=== PATIENT | male | born 1945 | race Caucasian/White ===

== ENCOUNTER 2018-04-29 17:18 | Emergency (ER) | payer MEDICARE, BC ==
[2018-04-29 19:28] VITALS: BP 140/71
--- NOTE | 2018-04-29 19:53 | UC ---
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 -denies wheezing, copd, asthma, fevers/chills. no sinus pain. quit smoking > 30 yrs ago. -usually gets an abx when he gets these sx. has used an inhaler in past. - History of Current Complaint Chief Complaint: UCGeneralIllness Stated Complaint: COUGH, CHEST CONGESTION Time Seen by Provider: 04/29/18 19:05 Pain Intensity: 0 - Allergies/Home Medications Allergies/Adverse Reactions: Allergies Allergy/AdvReac Type Severity Reaction Status Date / Time cefaclor [From [facility]] Allergy Severe redness/swelling Verified 04/29/18 19:29 face Home Medications: Home Medications Phentermine HCl 15 mg PO DAILY 04/29/18 [History Confirmed 04/29/18] PMH/Surg Hx/FS Hx/Imm Hx Previously Healthy: Yes Cardiovascular History: Hypertension - Surgical History Surgical History: Yes Surgery Procedure, Year, and Place: HERNIA REPAIR, VENOUS CLOSURE PARVIN LEGS. venous puncture right leg 2017 - Family History Known Family History: Positive: Hypertension, Respiratory Disease - Social History Alcohol Use: Rare Substance Use Type: Excessive Caffeine Smoking Status (MU): Former Smoker When Did the Patient Quit Smoking/Using Tobacco: 1990 Review of Systems All Other Systems Reviewed And Are Negative: Yes Constitutional: Positive: Negative Skin: Positive: Negative Eyes: Positive: Negative ENT: Positive: Nasal Discharge Respiratory: Positive: Cough Cardiovascular: Positive: Negative Gastrointestinal: Positive: Negative Genitourinary: Positive: Negative Motor: Positive: Negative Neurovascular: Positive: Negative Musculoskeletal: Positive: Negative Neurological: Positive: Negative Psychological: Positive: Negative Is Patient Immunocompromised?: No Physical Exam Triage Information Reviewed: Yes Appearance: Well-Appearing, No Pain Distress, Well-Nourished - no cough tat all during entire duration of my time in the room. speaks full sentences. no resp distress Vital Signs: Initial Vital Signs Temp 97.8 F 04/29/18 19:26 Pulse 76 04/29/18 19:26 Resp 17 04/29/18 19:26 BP 140/71 04/29/18 19:26 Pulse Ox 100 04/29/18 19:26 Vital Signs Reviewed: Yes Eye Exam: Normal ENT Exam: Normal ENT: Positive: Pharyngeal erythema - mild. + PND, no exudate., TMs normal. Negative: Sinus tenderness Neck exam: Normal Neck: Positive: Supple, Nontender, No Lymphadenopathy Respiratory: Positive: Lungs clear, Normal breath sounds, No respiratory distress, No accessory muscle use, Decreased breath sounds. Negative: Crackles , Rhonchi, Stridor, Wheezing Cardiovascular Exam: Normal Cardiovascular: Positive: RRR Abdomen Description: Positive: Nontender, Soft Musculoskeletal Exam: Normal - ambulates w/ cane. s/p leg surgery Neurological Exam: Normal Psychological Exam: Normal Skin Exam: Normal UC Diagnostic Evaluation - Laboratory O2 Sat by Pulse Oximetry: 100 Respiratory Course/Dx - Course Course Of Treatment: no evidence of bacterial infection. albuterol inhaler for inflammation. - Differential Dx/Diagnosis Differential Diagnosis/HQI/PQRI: Asthma, Bronchitis, Lower Resp Infection, Sinusitis Provider Diagnoses: Bronchitis Discharge - Sign-Out/Discharge Documenting (check all that apply): Patient Departure All imaging exams completed and their final reports reviewed: No Studies - Discharge Plan Condition: Stable Disposition: HOME Prescriptions: Albuterol HFA INHALER* [Ventolin HFA Inhaler*] 2 puff INH Q4H PRN 15 Days #1 mdi PRN Reason: Cough Patient Education Materials: Acute Bronchitis (ED) Referrals: Benji Medina MD [Primary Care Provider] - Additional Instructions: Make sure to increase your fluid intake and use the albuterol every 4 hrs as needed. - Billing Disposition and Condition Condition: STABLE Disposition: Home
== END 2018-04-29 20:09 | disposition home or self-care (01) ==
LOC: UCCORT 17:18
DX: J40 Bronchitis, not specified as acute or chronic (principal); I10 Essential (primary) hypertension; Z88.1 Allergy status to other antibiotic agents; Z87.891 Personal history of nicotine dependence
CPT/HCPCS: 99212; G0463

== ENCOUNTER 2018-07-09 16:08 | Emergency (ER) | payer MEDICARE, BC ==
[2018-07-09 17:13] VITALS: BP 141/65
--- NOTE | 2018-07-09 17:23 | UC ---
Skin Complaint HPI - HPI Summary HPI Summary: C/O "ants crawling" on skin UE > LE x 2 weeks. Much worse since last night. Severe itching with rash. OTC lotion. Started on the arms and has moved to the legs, right leg >> left leg. - History of Current Complaint Chief Complaint: UCSkin Time Seen by Provider: 07/09/18 17:04 Stated Complaint: SKIN COMPLAINT Hx Obtained From: Patient Onset/Duration: Sudden Onset, Lasting Weeks - 2, Worse Since - last night Timing: Constant Onset Severity: Mild Current Severity: Severe Pain Intensity: 0 Location: Discrete - bilateral UE and right LE below the knee Character: Swelling, Pruritus, Redness - with scaling Aggravating Factor(s): Touch Alleviating Factor(s): Nothing Associated Signs & Symptoms: Positive: Rash. Negative: Fever, Chills Related History: Recent change in medication - ? antibiotic after recent phlebectomy. - Allergy/Home Medications Allergies/Adverse Reactions: Allergies Allergy/AdvReac Type Severity Reaction Status Date / Time cefaclor [From [facility]] Allergy Severe redness/swelling Verified 04/29/18 19:29 face PMH/Surg Hx/FS Hx/Imm Hx Cardiovascular History: Hypertension - Surgical History Surgical History: Yes Surgery Procedure, Year, and Place: HERNIA REPAIR, VENOUS CLOSURE PARVIN LEGS. venous puncture right leg 2018. cervical fusion--01/2017 - Family History Known Family History: Positive: Hypertension, Respiratory Disease - Social History Occupation: Retired Lives: With Family Alcohol Use: Rare Substance Use Type: Excessive Caffeine Smoking Status (MU): Former Smoker When Did the Patient Quit Smoking/Using Tobacco: 1990 Review of Systems All Other Systems Reviewed And Are Negative: Yes Skin: Positive: Rash Is Patient Immunocompromised?: No Physical Exam Triage Information Reviewed: Yes Appearance: Well-Appearing, No Pain Distress, Well-Nourished Vital Signs: Initial Vital Signs Temp 97.1 F 07/09/18 17:08 Pulse 79 07/09/18 17:08 Resp 16 07/09/18 17:08 BP 141/65 07/09/18 17:08 Pulse Ox 100 07/09/18 17:08 Vital Signs Reviewed: Yes Eyes: Positive: Conjunctiva Clear Neck exam: Normal Respiratory Exam: Normal Cardiovascular Exam: Normal Musculoskeletal Exam: Normal Neurological Exam: Normal Psychological Exam: Normal Skin: Positive: Rashes - excoriated rash on the forearms and hands with thickened plaque rash on the right lower leg. Course/Dx - Differential Diagnoses - Skin Complaint Differential Diagnoses: Contact Dermatitis, Drug Rash, Eczema, Scabies, Urticaria, Viral Exanthem - Diagnoses Provider Diagnosis: Dermatitis Discharge - Sign-Out/Discharge Documenting (check all that apply): Patient Departure All imaging exams completed and their final reports reviewed: No Studies - Discharge Plan Condition: Stable Disposition: HOME Prescriptions: predniSONE TAB* [Deltasone 20 MG TAB*] 60 mg PO DAILY #18 tab Patient Education Materials: Dermatitis (ED), Prednisone (By mouth) Referrals: Benji Medina MD [Primary Care Provider] - If Needed - Billing Disposition and Condition Condition: STABLE Disposition: Home
== END 2018-07-09 17:48 | disposition home or self-care (01) ==
LOC: UCCORT 16:08
DX: L30.9 Dermatitis, unspecified (principal); I10 Essential (primary) hypertension; Z88.1 Allergy status to other antibiotic agents; Z87.891 Personal history of nicotine dependence
CPT/HCPCS: 99212; G0463

== ENCOUNTER 2019-08-23 08:15 | Emergency (ER) | payer MEDICARE, BC ==
--- OUTSIDE RECORDS SUMMARY | 2019-08-23 08:32 | XMS REPORT | Summary of Care ---
:1945 Author Organization [facility] Address [address] [place] [address] Care Team Providers Name Role Phone Benji Medina MD Primary Care Provider Reason for Visit Reason Comments Follow-up Encounter Details Date Type Department Care Team Description 07/28/2019 Office Visit [email or web address] Neurology at [place], [facility] kyphosis of [facility] MD Vera thoracolumbar region Center [address] [facility] (Primary Dx) [address], [place] 4[address], [address] [id number] [place] [address] Allergies Active Allergy Reactions Severity Noted Date Comments Cefaclor Anaphylaxis High 04/02/2012 Occurred "a few years ago" documented as of this encounter (statuses as of 08/04/2019) Medications Medication Sig Dispensed Refills Start Date End Date Status Losartan Potassium (COZAAR Take 50 mg by 0 Active PO) mouth 2 (two) times daily. Lansoprazole (PREVACID PO) Take 15 mg by 0 Active mouth daily. metoprolol (LOPRESSOR) 25 Take 25 mg by 0 Active MG tablet mouth Two Times Daily. hydrochlorothiazide TAKE ONE 5 10/03/2016 Active (HYDRODIURIL) 25 MG tablet TABLET BY MOUTH EVERY DAY Vitamin D3 TAKE 7 tabs 11 10/02/2016 Active (CHOLECALCIFEROL) 1000 once weekly UNITS tablet aspirin 81 MG tablet Take 81 mg by 0 Active mouth daily Naproxen Sodium (ALEVE) 220 Take 220 mg 0 Active MG CAPS by mouth as needed vitamin B-12 Take 2,500 0 Active (CYANOCOBALAMIN) 1000 MCG mcg by mouth tablet daily topiramate (TOPAMAX) 100 MG Take 1 tablet 60 tablet 11 03/18/2018 Active tabletIndications: by mouth Two Paresthesias Times Daily Additional information Patient not taking. Reported on 07/28/2019 3:51 PM baclofen (LIORESAL) 20 MG Take 1 tablet by 60 tablet 11 03/18/2018 Active tabletIndications: Spasticity mouth Two Times Daily Additional information Patient not taking. Reported on 07/28/2019 3:51 PM acetaminophen (TYLENOL) 500 Take 2 tablets by mouth 0 Active MG tablet as needed triamcinolone (KENALOG) 0.5 % 0 08/12/2018 Active cream ammonium lactate (LAC-HYDRIN) Apply topically 0 Active 12 % lotion topiramate (TOPAMAX) 100 MG TAKE ONE TABLET BY MOUTH 60 tablet 5 2018 Active tabletIndications: TWICE A DAY Paresthesias Additional information Patient not taking. 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 Monthly or less 01/27/2019 How many drinks containing alcohol do you have on a 1 or 2 01/27/2019 typical day when you are drinking? How often do you have six or more drinks on one Not asked occasion? Sex Assigned at Date Recorded Not on file Job Start Date Occupation Industry Not on file Not on file Not on file Travel History Travel Start Travel End No recent travel history available. documented as of this encounter Last Filed Vital Signs Vital Sign Reading Time Taken Comments Blood Pressure 170/85 07/28/2019 3:48 PM EST Pulse 88 07/28/2019 3:48 PM EST Temperature - - Respiratory Rate - - Oxygen Saturation - - Inhaled Oxygen Concentration - - Weight 123.8 kg (273 lb) 07/28/2019 3:48 PM EST Height 182.9 cm (6') 07/28/2019 3:48 PM EST Body Mass Index 37.03 07/28/2019 3:48 PM EST documented in this encounter Progress Notes Nishi, Chidi, [facility] - 07/28/2019 3:30 PM EST [facility] Clinic Dr. Perry. PATIENT NAME: Bin Rayo, DATE OF : 1945 . Primary Care Physician: Benji Medina MD Reason for visit: Follow up for cervical spondylitic myelopathy, remote hx of transverse myelitis and mild cognitive impairment. History of neurological condition: Bin Rayo is a 73 y.o. man who presents to the clinic for a follow up visit. Patient was diagnosed with transverse myelitis in when he presented with paresthesias in the legs and sensory ataxia. His symptoms resolved after receiving IV steroid treatment with out any recurrence. He had V. B12 deficiency years ago and was treated with IM vitamin B12 injections. He also has a history of neck pain and upper back pain. His MRI cervical spine (2010) showed evidence of cervical spondylitic myelopathy at C4-C5. He successfully underwent C3 - C6 ACDF performed by Dr. Oliver on 01/18/17 with improvement in urinary urgency. No recurrence of his TM symptoms. He is continuing to use a single point cane in his left hand (he is left handed), though he does not need a cane with ambulation around his house. He does not want to use any other type of assist devise at this time. He has 13 stairs in his house that he can use without trouble. He is continuing to take baclofen 20mg BID and Topamax 100mg BIDwithout any report adverse effects. He was seen by Dr. Oliver's team. He reported progressive heaviness in the LE with ambulation and continued urinary urgency that has remained stable. He denies any loss of bowel function or saddle anesthesia. MRI studies of the thoracic and lumbar spine showed a thoracic kyphosis and lumbar stenosis with bilateral L5 root impingement. Dr. Oliver' recommended conservative treatment over surgical decompression of the lumbar spine due to the thoracic kyphosis. He notes that his lower back pain is increased after ~20 minutes of standing and almost immediately improve with sitting Interval history Patient was last seen in the clinic in . His muscle biopsy returned back positive for non specific myopathic pattern. EMG-NC 01/2019 showed axial myopathy with muscle fiber irritability in addition to mixed neuropathy and S1 radiculopathy. He has no new complains with no improvement or worsening of his conditions. He still using a cane while walking and pended gesture and gait difficulty. He had seen vascular surgery for varicose veins of his legs with edema and some stasis ulcers. Medications Current Outpatient Medications Medication Sig Dispense Refill acetaminophen (TYLENOL) 500 MG tablet Take 2 tablets by mouth as needed aspirin 81 MG tablet Take 81 mg by mouth daily hydrochlorothiazide (HYDRODIURIL) 25 MG tablet TAKE ONE TABLET BY MOUTH EVERY DAY 5 Lansoprazole (PREVACID PO) Take 15 mg by mouth daily. Losartan Potassium (COZAAR PO) Take 50 mg by mouth 2 (two) times daily. metoprolol (LOPRESSOR) 25 MG tablet Take 25 mg by mouth Two Times Daily. Naproxen Sodium (ALEVE) 220 MG CAPS Take 220 mg by mouth as needed Phentermine HCl 30 MG Oral Capsule Take 30 mg by mouth every morning triamcinolone (KENALOG) 0.5 % cream vitamin B-12 (CYANOCOBALAMIN) 1000 MCG tablet Take 2,500 mcg by mouth daily Vitamin D3 (CHOLECALCIFEROL) 1000 UNITS tablet TAKE 7 tabs once weekly 11 Vitamin E 1000 UNIT Oral Capsule Take 1,000 Units by mouth daily ammonium lactate (LAC-HYDRIN) 12 % lotion Apply topically baclofen (LIORESAL) 20 MG tablet Take 1 tablet by mouth Two Times Daily ( Patient not taking: Reported on 07/28/2019) 60 tablet 11 predniSONE 10 MG Oral Tablet (DELTASONE) Take 4 tablets by mouth daily 120 tablet 0 topiramate (TOPAMAX) 100 MG tablet Take 1 tablet by mouth Two Times Daily (Patient not taking: Reported on 07/28/2019) 60 tablet 11 topiramate (TOPAMAX) 100 MG tablet TAKE ONE TABLET BY MOUTH TWICE A DAY ( Patient not taking: Reported on 07/28/2019) 60 tablet 5 No current facility-administered medications for this visit. Review of Systems Complete ROS negative except as noted in HPI and as follows: Mild weight gain, urinary urgency Physical exam Visit Vitals BP 170/85 Pulse 88 Ht 1.829 m (6') Wt 123.8 kg (273 lb) BMI 37.03 kg/m General Examination: In no apparent distress, stooped posture, Neurological Examination: Mental Status: The patient was awake, alert, attentive, oriented to time, place , person. Speech- normal Cranial Nerves: Pupils 2-3 mm B/L equal and reactive EOMI, no nystagmus No facial asymmetry Protrusion of tongue midline. Shoulder shrug strength appeared normal bilaterally and neck rotation against resistance showed normal sternocleidomastoid strength bilaterally. Motor Examination: Normal bulk with no atrophy Increased tone in B/L LE Sensation: Fine touch intact b/l Power: Upper extremity Deltoid Biceps Triceps WE WF FE FF IO APB Other Right 5 5 5- 5 5 5 5 5 Left 5 5 5- 5 5 5 5 5 Power: Lower extremity Hip flexion Quads TA Gastroc Hamstrings Hip extension Other Right 5- 5 5 5 5 5 Left 5 5 5 5 5 5 Reflexes: Right Left Biceps +1 +1 Triceps +2 +2 Brachioradialis +2 +2 Patellar +3 +2 Achilles +2 +2 Plantar down Down No clonus Vibration Pinprick Right Left Right Left Toes Absent Absent + + Ankles Absent Absent + + Knees 6 sec 8sec + + Fingers + + Elbows + + Coordination: normal [id number] and normal [id number] test. Gait: Stooping posture , walks with short steady steps. Labs (04/2015) Vit. B12 level -1219 Vit. D level - 50 Brain MRI 2010: Few frontal subcortical WM lesions. No change c/w 2006 Cervical MRI 05/28/2016 1. Advanced degenerative changes, with high-grade spinal canal and neural foraminal stenosis, as detailed above. Compared to the prior exam dated 2010, the degree of spinal canal narrowing at C3-C4 and C4-C5 with cord compression and flattening of the cord at C4-C5 appears minimally progressed. This could be related to changes in positioning, as the cervical spine is more hyperextended on the current study. Spine surgery consult should be considered. 2. Mild signal abnormality in the cord at the C4-C5 level is unchanged. Myelomalacia in the dorsal cord at the T3-T4 level is also unchanged. Thoracic MRI 2018: Limited study. Moderate kyphosis. Disc/osteophyte complexes at T5-6 and T6-7 flattening but not compressing the cord. The cord is mildly atrophic throughout. L/S MRI 2018: 1. Grade 2 anterolisthesis and bilateral pars defects at L5-S1. 2. Multilevel spinal and foraminal stenosis with compression of the L5 nerve roots bilaterally, the left L4 nerve root, and possibly the right L4 nerve root. Muscle biopsy 03/2019 Diagnosis A) SKELETAL MUSCLE, LEFT VASTUS MEDIALIS, BIOPSY: CHRONIC MYOPATHIC CHANGES. Assessment and plan Bin Rayo is a 71 y.o. man with medical history of Cervical Spondylitic Myelopathy, H/o Transversemyelitis (In 1991), Mild Cognitive impairment, h/o V. B12 deficiency who presents to the clinic for a follow up visit. 1) Camptocormia with Late-Onset Axial Myopathy. - Persistent hyperflexion of the thoracolumbar spine during the upright position. - Differential diagnosis: Calpainopathy vs Idiopathic. - Ideally; autosomal recessive muscular dystrophy due to calpain-3 gene (CAPN3) mutations or calpainopathy. Positive family history in mother. - MRI per our personal review or paraspinal muscle atrophy. - Muscle biopsy is positive for myopathic pattern. EMG-NC 01/2019 showed Axial myopathy with muscle fiber irritability in addition to mixed neuropathy and S1 radiculopathy. - Follows up with Dr. Oliver with ortho spine with plans of conservative magament only at this time. - Given the progressive nature, will do a trial of steroid starting prednisone 40 mg daily with carefull watching and follow up in 3-4 weeks. Discussed with the patient risks and possible benefits of steroid including increase salt &amp ; water retention, worsening peripheral edema, mood changes, depression. Mr. Steward is agreeable and willing to try anything that might help. - He was instructed to take his blood sugar and stretch his back. 2) Cervical Spondylitic myelopathy - S/p ACDF C3-C6- Continues to do very well - Continue Baclofen 20 mg BID. - Continue Topamax 100 mg BID for control of paresthesias. - Both medications e-scribed with refills for one year 3) Chronic back pain - Continue with PT balance and strength. 4) Remote H/o Transverse Myelitis - No active symptoms. Follow up in clinic in 3-4 weeks or sooner if needed. The patient was discussed with my attending Dr. Orlando MD and this plan was formulated together. I saw and evaluated the patient. Discussed with the resident and agree with residents findings as documented in the resident's note. Bin appears to have an axial myopathy causing camptocormia. Because inflammatory myopathy is in the ddx and because it may respond to treatment, similar to the neck extensor myopathy, Mr Rayo would like to attempt a trial of prednisone. Potential risks were reviewed in detail, including but not limited to mood disturbance, weight gain, swelling, confusion, hypertension, diabetes, osteoporosis, glaucoma, cataracts, etc He wants to go ahead. His is diabetic so she can check is blood sugar daily. I will see him in one month. He will call with any concerns. dyb Vera Moseley MD - 07/28/2019 3:30 PM EST documented in this encounter Plan of Treatment Date Type Specialty Care Team Description 12/07/2019 Office Visit Orthopedic Surgery Hector Oliver MD [address] [place] [address] Health Maintenance Due Date Last Done Comments Hepatitis C Screening (B. 1945 9063-8589) MMR Vaccines (1 of 1 - Standard [birth year]/1948 series) Varicella Vaccines (1 of 2 - [birth year]29/1948 2-dose childhood series) DTaP,Tdap,and Td Vaccines (1 - 08/29/1954 Tdap) Hepatitis B Vaccines (1 of 3 - 08/29/1966 Risk 3-dose series) Colon Cancer Screening 10 yrs 08/29/1997 Zoster Vaccines (1 of 2) 08/29/1997 Pneumococcal Vaccine: 65+ Years (1 08/29/2012 of 2 - PCV13) Influenza Vaccine 03/14/2019 HIB Vaccines Aged Out No longer eligible based on patient's age to complete this topic Hepatitis A Vaccines Aged Out No longer eligible based on patient's age to complete this topic IPV Vaccines Aged Out No longer eligible based on patient's age to complete this topic Pneumococcal Vaccine: Pediatrics Aged Out No longer eligible based on (0 to 5 Years) and At-Risk patient's age to complete this Patients (6 to 64 Years) topic documented as of this encounter Goals Goal Patient Goal Associated Recent Patient-Stated? Author Type Problems Progress Blood Pressure Blood Pressure 170/85 No Orlando, < 140/90 (07/28/2019 MD Vera 3:48 PM EST) documented as of this encounter Implants Implanted Type Area Filler In Device Shelf Model / Identifier Expiration Serial / Date Lot Putty Bone Vivigen 1cc - [id number] N/A: Spine LIFENET TISSUE [id number] / Implanted: Qty: 1 on 01/18/2017 by Hector Oliver MD at OR [facility] Cervical SEVICES [id number] / [id number] Bone Cerv Lordotic 6x8mm. - [id number] N/A: Spine LIFENET TISSUE 05/01/2017 [id number] / Implanted: Qty: 1 on 01/18/2017 by Hector Oliver MD at OR [facility] Cervical SEVICES [id number] / [id number] Bone Cerv Lordotic 5x7mm. - [id number] N/A: Spine LIFENET TISSUE 08/11/2021 [id number] / Implanted: Qty: 1 on 01/18/2017 by Hector Oliver MD at OR [facility] Cervical SEVICES [id number] / [id number] Bone Cerv Lordotic 5x7mm. - [id number] N/A: Spine LIFENET TISSUE 07/20/2021 [id number] / Implanted: Qty: 1 on 01/18/2017 by Hector Oliver MD at OR [facility] Cervical SEVICES [id number] / [id number] Plate Cerv 54mm 3 Lev [place] - Sn/A N/A: Spine DEP MEDICAL [id number] / Implanted: Qty: 1 on 01/18/2017 by Hector Oliver MD at OR [facility] Cervical N/A / N/A Screw Cerv.16mm [place] - Sn/A N/A: Spine DEP MEDICAL [id number] / Implanted: Qty: 2 on 01/18/2017 by Hector Oliver MD at OR [facility] Cervical N/A / N/A Screw Variable 16mm De[place] Lrg-D - Sn/A N/A: Spine DEP MEDICAL [id number] / Implanted: Qty: 1 on 01/18/2017 by Hector Oliver MD at OR [facility] Cervical N/A / N/A Screw Variable 16mm Dejon S-T - Sn/A N/A: Spine DEP MEDICAL [id number]/18/[id number] / Implanted: Qty: 6 on 01/18/2017 by Hector Oliver MD at OR [facility] Cervical N/A / N/A documented as of this encounter Results Not on filedocumented in this encounter Visit Diagnoses Diagnosis Postural kyphosis of thoracolumbar region - Primary Kyphosis (acquired) (postural) documented in this encounter
--- OUTSIDE RECORDS SUMMARY | 2019-08-23 08:32 | XMS REPORT | Summary of Care ---
:1945 Author Organization [facility] Address [address] [place] [address] Care Team Providers Name Role Phone Benji Medina MD Primary Care Provider Reason for Visit Reason Comments Follow-up Encounter Details Date Type Department Care Team Description 08/18/2019 Office Visit [facility] at [facility] ( Primary Dx); [facility] MD Vera Myelopathy, spondylogenic, cervical Center [address] 4th Floor, [id number] [place] [phone] Allergies Active Allergy Reactions Severity Noted Date Comments Cefaclor Anaphylaxis High 04/02/2012 Occurred "a few years ago" documented as of this encounter (statuses as of 08/18/2019) Medications Medication Sig Dispensed Refills Start End Status Date Date Losartan Potassium Take 50 mg by 0 Active (COZAAR PO) mouth 2 (two) times daily. Lansoprazole (PREVACID Take 15 mg by 0 Active PO) mouth daily. metoprolol (LOPRESSOR) Take 25 mg by 0 Active 25 MG tablet mouth Two Times Daily. hydrochlorothiazide TAKE ONE 5 10/04/19 Active (HYDRODIURIL) 25 MG TABLET BY 17 tablet MOUTH EVERY DAY aspirin 81 MG tablet Take 81 mg by 0 Active mouth daily Naproxen Sodium (ALEVE) Take 220 mg 0 Active 220 MG CAPS by mouth as needed vitamin B-12 Take 2,500 0 Active (CYANOCOBALAMIN) 1000 mcg by mouth MCG tablet daily acetaminophen (TYLENOL) Take 2 0 Active 500 MG tablet tablets by mouth as needed triamcinolone (KENALOG) 0 08/13/19 Active 0.5 % cream 19 ammonium lactate Apply 0 Active (LAC-HYDRIN) 12 % topically lotion Vitamin E 1000 UNIT Take 1,000 0 Active Oral Capsule Units by mouth daily Phentermine HCl 30 MG Take 30 mg by 0 Active Oral Capsule mouth every morning predniSONE 10 MG Oral Take 4 120 tablet 0 08/18/19 Active Tablet (DELTASONE) tablets by 20 020 mouth daily Vitamin D3 1.25 MG Take 50,000 54 tablet 3 08/18/19 Active (90957 UT) Oral Tablet Units by 20 mouth once a week Vitamin D3 Take 10,000 11 10/03/19 Discontinued (CHOLECALCIFEROL) 1000 Units by 17 020 (Formulary UNITS tablet mouth once a change) week topiramate (TOPAMAX) Take 1 tablet 60 tablet 11 03/18/20 Discontinued 100 MG by mouth Two 18 020 (Therapy tabletIndications: Times Daily completed) Paresthesias baclofen (LIORESAL) 20 Take 1 tablet 60 tablet 11 03/18/20 Discontinued MG tabletIndications: by mouth Two 18 020 (Therapy Spasticity Times Daily completed) topiramate (TOPAMAX) TAKE ONE 60 tablet 5 12/30/19 Discontinued 100 MG TABLET BY 19 020 (Therapy tabletIndications: MOUTH TWICE A completed) Paresthesias DAY predniSONE 10 MG Oral Take 4 120 tablet 0 07/28/19 Discontinued Tablet (DELTASONE) tablets by 20 020 (Reorder) mouth daily documented as of this encounter (statuses as of 08/18/2019) Active Problems Problem Noted Date 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 Essential hypertension 12/07/2018 Venous insufficiency of both lower extremities 12/07/2018 Generalized edema 12/07/2018 Cervical stenosis of spine 01/18/2017 Postural kyphosis of thoracolumbar region 04/22/2015 Neurologic gait disorder 04/14/2012 Idiopathic transverse myelitis 04/08/2012 Myelopathy, spondylogenic, cervical 04/08/2012 Obstructive sleep apnea Overview: Cannot tolerate CPAP documented as of this encounter (statuses as of 08/18/2019) Social History Tobacco Use Types Packs/Day Years [...] Sign Reading Time Taken Comments Blood Pressure 150/80 08/18/2019 1:01 PM EST Pulse 66 08/18/2019 1:01 PM EST Temperature - - Respiratory Rate - - Oxygen Saturation - - Inhaled Oxygen Concentration - - Weight 123.8 kg (273 lb) 08/18/2019 1:01 PM EST Height 182.9 cm (6') 08/18/2019 1:01 PM EST Body Mass Index 37.03 08/18/2019 1:01 PM EST documented in this encounter Patient Instructions Patient InstructionsIsreal Craven MD - 08/18/2019 1:[address] Perry September 28 at 1 pm Continue prednisone for one more month documented in this encounter Progress Notes Vera Perry MD - 08/18/2019 1:00 PM ESTSee photos in [facility]ronically signed by Vera Perry MD at 08/18/2019 6:29 PM Isreal Singh MD - 08/18/2019 1:00 PM EST [address] Dr. Perry. PATIENT NAME: Bin Rayo, DATE OF : 1945 . Primary Care Physician: Benji Medina MD Reason for visit: Follow up for Camptocormia with Late-Onset Axial Myopathy History of neurological condition: Bin Rayo is a 73 y.o. man with a history of transverse myelitis in 1989' when he presented with paresthesias in the legs and sensory ataxia. His symptoms resolved after receiving IV steroid treatment with out any recurrence. He had V. B12 deficiency years ago and was treated with IM vitamin B12 injections. He also has a history of neck pain and upper back pain. His MRI cervical spine (2010) showed evidence of cervical spondylitic myelopathy at C4- C5. He successfully underwent C3 - C6 ACDF performed by Dr. Oliver on 01/18/17 with improvement in urinary urgency. No recurrence of his TM symptoms. He gradually developed stooped posture since 5 years ago, which continued to progress and get worse. He had increasing difficulty with gait, with reaching over head and getting out of chairs. EMG-NC 01/2019 showed Axial myopathy with muscle fiber irritability in addition to mixed neuropathy and S1 radiculopathy. Muscle biopsy was done on03/2019 which showed chronic myopathic changes. He was seen by Dr. Oliver's team. [...] was last seen in the clinic in 07/28/2019. His muscle biopsy returned back positive for non specific myopathic pattern. During last visit a trial of treatment with steroid attempted. He was started on prednisone 40 mg on the possibility of inflammatory myopathy. The patient returns today, stating that he is significantly improve. He reports he is able to lay flat or stand up from sitting position more easily. He used to have pain when he was lying flat in thepast which he does not experience it since taking steroids. It actually stopped two days after taking prednisone. He reports he used to have shuffling gait which has improved since taking prednisone aswell. He checked his blood sugar multiple times since starting prednisone and his BS was within normal range. He denies any mood disturbance, confusion, high blood pressure since starting prednisone. He still using a cane while walking and markedly stooped posture and gait difficulty. He got a scooter last year and has not used it yet. He had seen vascular surgery for varicose veins of his legs with edema and some stasis ulcers. His last visit was 3 months ago and will follow up as needed. Medications Current Outpatient Medications Medication Sig Dispense [...] Take 30 mg by mouth every morning predniSONE 10 MG Oral Tablet (DELTASONE) Take 4 tablets by mouth daily 120 tablet 0 vitamin B-12 (CYANOCOBALAMIN) 1000 MCG tablet Take 2,500 mcg by mouth daily Vitamin D3 (CHOLECALCIFEROL) 1000 UNITS tablet Take 10,000 Units by mouth once a week 11 Vitamin E 1000 UNIT Oral Capsule Take 1,000 Units by mouth daily ammonium lactate (LAC-HYDRIN) 12 % lotion Apply topically baclofen (LIORESAL) 20 MG tablet Take 1 tablet by mouth Two Times Daily ( Patient not taking: Reported on 07/28/2019) 60 tablet 11 topiramate (TOPAMAX) 100 MG tablet Take 1 tablet by mouth Two Times Daily (Patient not taking: Reported on 07/28/2019) 60 tablet 11 topiramate (TOPAMAX) 100 MG tablet TAKE ONE TABLET BY MOUTH TWICE A DAY ( Patient not taking: Reported on 07/28/2019) 60 tablet 5 triamcinolone (KENALOG) 0.5 % cream No current facility-administered medications for this visit. PHQ-9 Score: 1 for feeling tired Brief Pain Inventory: Location of pain: Low back Worst pain in the past 24 hours: 0 Least pain in the past 24 hours: 0 Average pain in the past 24 hours: 1 Pain right now: 0 How much relief do pain meds provide: 100% How has the pain interfered with general activity: 1 Effect on mood: 0 Effect on walkin Effect on work: 0 Effect on relationships: 0 Effect on sleep: 0 Enjoyment of life: 0 Review of Systems Complete ROS negative except as noted in HPI and as follows: Frequent urination Physical exam Visit Vitals BP 150/80 Pulse 66 Ht 1.829 m (6') Wt 123.8 kg (273 lb) BMI 37.03 kg/m General Examination: In no apparent distress, stooped posture (sever anterior flexion of thoracic spine) Neurological Examination: Mental Status: The patient was awake, alert, attentive, oriented to time, place , person. Speech- normal Cranial Nerves: Pupils 3 mm B/L equal and reactive EOMI, no [...] FF IO APB Other Right 5 5 5 5 5 5 5 5 Left 5 5 5 5 5 5 5 5 Power: Lower extremity Hip flexion Quads TA Gastroc Hamstrings Hip extension Other Right 5- 5 5 5 5 5 Left 5 5 5 5 5 5 Reflexes: Right Left Biceps +1 +1 Triceps +2 +2 Brachioradialis +2 +2 Patellar +3 +2 Achilles +2 +2 Plantar Down Down No clonus Vibration Pinprick Right Left Right Left Toes Absent Absent - - Ankles Absent Absent - + Knees 6 sec 8sec + + Fingers + + Elbows + + Coordination: normal [id number] and normal amcj-dh-[id number] test. Gait: Stooping posture (severe anterior flexion of the spine), walks with short steady steps. We compared profile photos of the patient at rest and attempting to stand up straight with those taken at the last visit and there appears to be significant improvement in the posture. Diagnostic Data: Muscle biopsy 03/2019 Diagnosis A) SKELETAL MUSCLE, LEFT VASTUS MEDIALIS, BIOPSY: CHRONIC MYOPATHIC CHANGES. Electromyography Report 02/03/2019 Detailed EMG study of the right upper, lower and paraspinal muscles revealed fibrillations in the gastrocnemius and in the thoracic paraspinals at 2 levels. In the thoracic paraspinals, motor units were low amplitude, brief in duration and polyphasic. Limb muscles of the upper and lower extremities demonstrated enlarged, neuropathic motor units. Recruitment was normal except in the deltoid where itwas mildly reduced. No motor units were recorded in the gastrocnemius. Conclusion:1. Axial myopathy with muscle fiber irritability 2. Sensorimotor axonal polyneuropathy 3.Possible right S1 radiculopathy Thoracic MRI 2018: Limited study. Moderate kyphosis. [...] and possibly the right L4 nerve root. Cervical MRI 05/28/2016 1. Advanced degenerative changes, [...] at the T3-T4 level is also unchanged. Brain MRI 2010: Few frontal subcortical WM lesions. No change c/w 2006 Labs (04/2015) Vit. B12 level -1219 Ref. Range 04/16/2014 13:39 04/22/2015 11:43 02/08/2019 13:25 Vitamin D 25 Hydroxy, TOTAL Latest Ref Range: >30 ng/mL 48 50 30 (L) Assessment and plan Bin Rayo is a 73 y.o. man with axial myopathy causing camptocormia. He has history of Cervical Spondylitic Myelopathy, h/o Transverse myelitis (In 1991), Mild Cognitive impairment, h/o Vitamin B12 deficiency who presents to the clinic for a follow up visit. During last visit a trial of treatment with steroid attempted which showed significant improvement in patient symptoms. There has been notableimprovement in anterior flexion of the spine since last visit. 1) Camptocormia with Late-Onset Axial Myopathy - Persistent anterior flexion of the thoracolumbar spine during the upright position. - MRI per our personal review showed paraspinal muscle atrophy. - Muscle biopsy is positive for myopathic pattern. - EMG-NC 01/2019 showed Axial myopathy with muscle fiber irritability in addition to mixed neuropathyand S1 radiculopathy. - Follows up with Dr. Oliver with ortho spine with plans of conservative magament only at this time. - Significant subjective improvement on prednisone, mostly pain and stiffness. However, comparing profile photos from today with 3 weeks prior, the posture has improved. - Continue prednisone 40 mg daily for one more month (started 07/29/2018) - Monitor Blood pressure and Blood sugar while on prednisone(Potential risks were reviewed in detail, including but not limited to mood disturbance, weight gain, swelling, confusion, hypertension, diabetes, osteoporosis, glaucoma, cataracts, etc ) - Follow up In [facility] clinic in one month 2) Cervical Spondylitic myelopathy - S/p ACDF C3-C6 continues to do very well 3) Chronic back pain - No pain when sitting, pain with standing up for 20-30 min - Continue with PT balance and strength. 4) Remote H/o Transverse Myelitis - No active symptoms. 5)Vitamin D deficiency -Vitamin D 33998 unit weekly Follow up in [facility] clinic 09/29/2019 at 1 PM. The patient was discussed with my attending Dr. Orlando MD and this plan was formulated together. I saw and evaluated the patient. Discussed with the resident and agree with residents findings as documented in the resident's note. Mr. Rayo reports dramatic improvement in pain and stiffness in hisback and knees since starting prednisone. He can rise more easily and he states that his gait has improved. In profile photos he appears to be standing straighter than he did 3 weeks ago. Most of hissymptomatic relief appears to be from joint symptoms. However, he is excited about the improvement, seems to be standing straighter so we will continue it for another month at least, then begin a taper. dyb documented in this encounter Plan of Treatment Date Type Specialty Care Team Description 09/29/2019 Office Visit Neurology Vera Perry MD [address] [place] [address] [phone] 12/07/2019 Office Visit Orthopedic Surgery Hector Oliver MD [address] [place] [address] [phone] Health Maintenance Due Date Last Done Comments Hepatitis C Screening (B. 1945 4219-8731) MMR Vaccines (1 of 1 - Standard [...] Type Problems Progress Blood Pressure Blood Pressure 150/80 No Perry, < 140/90 (08/18/2019 MD Vera 1:01 PM EST) documented as of this encounter Implants Implanted Type Area Wire Fence Erector Device Shelf Model / Identifier Expiration Serial / Date Lot Janene Bone Anaigen 1cc - [id number] N/A: Spine LIFENET TISSUE [id number] / Implanted: Qty: 1 on 01/18/2017 by Hector Oliver MD at OR 5E Cervical [employer] [id number] / [id number] Bone Cerv Lordotic 6x8mm. - [id number] N/A: Spine LIFENET TISSUE 05/01/2017 [id number] / Implanted: Qty: 1 on 01/18/2017 by Hector Oliver MD at OR 5E Cervical [employer] [id number] / [id number] Bone Cerv Lordotic 5x7mm. - [id number] N/A: Spine LIFENET TISSUE 08/11/2021 [id number] / Implanted: Qty: 1 on 01/18/2017 by Hector Oliver MD at OR 5E Cervical [employer] [id number] / [id number] Bone Cerv Lordotic 5x7mm. - [id number] N/A: Spine LIFENET TISSUE 07/20/2021 [id number] / Implanted: Qty: 1 on 01/18/2017 by Hector Oliver MD at OR 5E Cervical [employer] [id number] / [id number] Plate Cerv 54mm 3 Lev [place] - Sn/A N/A: Spine DEP MEDICAL 2016-03-054 / Implanted: Qty: 1 on 01/18/2017 by Hector Oliver MD at OR 5E Cervical N/A / N/A Screw Cerv.16mm [place] S[place] - Sn/A N/A: Spine DEP MEDICAL 2016 [id number] / Implanted: Qty: 2 on 01/18/2017 by Hector Oliver MD at OR 5E Cervical N/A / N/A Screw Variable 16mm Dejon Lrg-D - Sn/A N/A: Spine DEP MEDICAL 2016 [id number] / Implanted: Qty: 1 on 01/18/2017 by Hector Oliver MD at OR 5E Cervical N/A / N/A Screw Variable 16mm Dejon S-T - Sn/A N/A: Spine DEP MEDICAL 01/18/2017 [id number] / Implanted: Qty: 6 on 01/18/2017 by Hector Oliver MD at OR 5E Cervical N/A / N/A documented as of this encounter Results Not on filedocumented in this encounter Visit Diagnoses Diagnosis Camptocormia - Primary Conversion disorder Myelopathy, spondylogenic, cervical Cervical spondylosis with myelopathy documented in this encounter
[2019-08-23 09:09] VITALS: BP 141/68
--- NOTE | 2019-08-23 11:11 | UC ---
Bite Injury/Animal HPI - HPI Summary HPI Summary: Pt presents with c/o sudden onset of increased warmth to left hand, swelling tenderness, and erythema. Pt states he was scratched by his dog last week. The pt states that he noticed increased tenderness and redness to left 5th knuckle last evening and a "quick spread of redness and swelling over night". Pt reports that he had two minor lacerations to left posterior wrist and distal forearm that were healing and suddenly opened due to swelling over night. - History of Current Complaint Chief Complaint: UCUpperExtremity Stated Complaint: SWOLLEN LEFT HAND Time Seen by Provider: 08/23/19 10:07 Hx Obtained From: Patient Severity Currently: Mild Severity Initially: Moderate Pain Intensity: 5 Pain Scale Used: 0-10 Numeric Onset/Duration: Sudden Onset, Lasting Hours Type of Bite: Pet Has Animal Been Immunized?: Yes Character: Abrasion/Laceration Aggravating Factor(s): Other - movement Alleviating Factor(s): Nothing Associated Signs And Symptoms: Positive: Erythema, Swelling Hx of Bite: Unprovoked Animal Available for Observation: Yes Animal Control Notified: No - Risk Factors Infection/Sepsis Risk Factors: Negative - Allergies/Home Medications Allergies/Adverse Reactions: Allergies Allergy/AdvReac Type Severity Reaction Status Date / Time cefaclor [From [facility]] Allergy Severe redness/swelling Verified 08/23/19 08:56 face Home Medications: Home Medications Losartan TAB* [Cozaar TAB*] 50 mg PO BID 01/22/13 [History Confirmed 08/23/19] Aspirin [Aspirin EC] 81 mg PO QPM 08/19/14 [History Confirmed 08/23/19] Metoprolol Tartrate 25 mg PO BID 08/19/14 [History Confirmed 08/23/19] Cholecalciferol TAB* [Vitamin D TAB*] 10,000 unit PO WEEKLY 02/11/15 [History Confirmed 07/09/18] Cyanocobalamin (Vitamin B-12) [Vitamin B-12] 1,000 mcg PO BEDTIME 05/09/16 [ History Confirmed 08/23/19] Albuterol HFA INHALER* [Ventolin HFA Inhaler*] 2 puff INH Q4H PRN 15 Days #1 mdi 04/29/18 [Rx Confirmed 08/23/19] Phentermine HCl 15 mg PO DAILY 04/29/18 [History Confirmed 08/23/19] Acetaminophen TAB* [Tylenol TAB*] 650 mg PO Q4H PRN 08/23/19 [History Confirmed 08/23/19] Cholecalciferol TAB* [Vitamin D TAB*] 50,000 unit PO WEEKLY 08/23/19 [History Confirmed 08/23/19] Naproxen Sodium [Aleve] 220 mg PO PRN 08/23/19 [History] Sulfamethox/Trimethoprim DS* [Bactrim DS 800/160 TAB*] 1 tab PO Q12H #20 tab 05/03 [Rx] clindamycin HCL [Clindamycin HCl] 300 mg PO Q8H #30 capsule 08/23/19 [Rx] predniSONE 20 mg TAB [Deltasone 20 MG TAB*] 40 mg PO DAILY 08/23/19 [History Confirmed 08/23/19] PMH/Surg Hx/FS Hx/Imm Hx Previously Healthy: Yes Cardiovascular History: Cardiac Disease, Hypertension - Surgical History Surgical History: Yes Surgery Procedure, Year, and Place: HERNIA REPAIR, VENOUS CLOSURE PARVIN LEGS. venous puncture right and left leg 2017. cervical fusion--01/2017 - Family History Known Family History: Positive: Hypertension, Respiratory Disease - Social History Occupation: Retired Lives: With Family Alcohol Use: Rare Substance Use Type: Excessive Caffeine Smoking Status (MU): Former Smoker Have You Smoked in the Last Year: No When Did the Patient Quit Smoking/Using Tobacco: 1990 Review of Systems All Other Systems Reviewed And Are Negative: Yes Constitutional: Positive: Negative Skin: Positive: Other - erythema left wrist and hand Eyes: Positive: Negative ENT: Positive: Negative Respiratory: Positive: Negative Cardiovascular: Positive: Negative Gastrointestinal: Positive: Negative Genitourinary: Positive: Negative Motor: Positive: Negative Neurovascular: Positive: Negative Musculoskeletal: Positive: Edema - left Neurological/Mental Status: Positive: Negative Psychological: Positive: Negative Is Patient Immunocompromised?: No Physical Exam Triage Information Reviewed: Yes Appearance: Well-Appearing Vital Signs: Initial Vital Signs Temp 97.7 F 08/23/19 09:00 Pulse 62 08/23/19 09:00 Resp 15 08/23/19 09:00 BP 141/68 08/23/19 09:00 Pulse Ox 99 08/23/19 09:00 Vital Signs Reviewed: Yes Eye Exam: Normal ENT: Positive: Hearing grossly normal Dental Exam: Normal Neck exam: Normal Respiratory: Positive: No respiratory distress Cardiovascular Exam: Normal Musculoskeletal Exam: Normal Neurological Exam: Normal Psychological Exam: Normal Skin Exam: Other - mild erythema and swelling to left hand extending to distal wrist. two superficial linear breaks in skin integrity one at mid wrist dorsal aspect ~ 1.5 cm X 3mm and second at distal forearm ulnar aspect ~ 1 cm X 2 mm Bite Injury Course/Dx - Differential Dx/Diagnosis Differential Diagnosis/HQI/PQRI: Cellulitis, Joint Space Infection, Superficial Infection Provider Diagnosis: Cellulitis of left hand Discharge ED - Sign-Out/Discharge Documenting (check all that apply): Patient Departure All imaging exams completed and their final reports reviewed: No Studies - Discharge Plan Condition: Stable Disposition: HOME Prescriptions: clindamycin HCL [Clindamycin HCl] 300 mg PO Q8H #30 capsule Sulfamethox/Trimethoprim DS* [Bactrim DS 800/160 TAB*] 1 tab PO Q12H #20 tab Patient Education Materials: Animal Bite (ED) Referrals: Benji Medina MD [Primary Care Provider] - If Needed - Billing Disposition and Condition Condition: STABLE Disposition: Home
== END 2019-08-23 10:30 | disposition home or self-care (01) ==
LOC: UCCORT 08:15
DX: L03.114 Cellulitis of left upper limb (principal); I51.9 Heart disease, unspecified; I10 Essential (primary) hypertension; Z88.1 Allergy status to other antibiotic agents; Z79.82 Long term (current) use of aspirin; Z79.899 Other long term (current) drug therapy; Z87.891 Personal history of nicotine dependence
CPT/HCPCS: 99212; G0463

== ENCOUNTER 2019-09-16 10:55 | Emergency (ER) | payer MEDICARE, BC ==
[2019-09-16 11:36] VITALS: BP 160/78
--- NOTE | 2019-09-16 11:54 | UC ---
Hand/Wrist HPI - HPI Summary HPI Summary: 74 yo with multiple medical problems, with onset of acute right shoulder pain on 09/11 when he gave a big tub to a blanket caught underneath his buttocks while he was sitting on a recliner. Unable to abduct greater than 60 degree since that time. He has no associated neck pain, hx of past cervical spinal fusion. Usually left handed, he lifted a heavy pain with his left hand 2 days later, and about 30 minutes after hand onset of pain and swelling in the left wrist. He has been using both naproxen 220mg up twice daily and acetaminophen 1000mg several times daily without relief of pain. He has been on oral prednisone 40mg daily for over 4 weeks on the recommendation of his neurologist. Hx of neuropathy with gait disruption; goal was to see if his gait and balance improved and they have, so plan is to continue with use. - History Of Current Complaint Stated Complaint: LT WRIST COMPLAINT Hx Obtained From: Patient Onset/Duration: Sudden Onset, Lasting Days Severity Initially: Moderate Severity Currently: Moderate Pain Intensity: 4 Character Of Pain: Dull, Aching Aggravating Factor(s): Movement Alleviating Factor(s): OTC Meds Associated Signs And Symptoms: Positive: Swelling - of the left wrist Related History: Dominant Hand Left - but also uses his right arm a lot. - Risk Factors Compartment Syndrome Risk Factors: Pain - Allergies/Home Medications Allergies/Adverse Reactions: Allergies Allergy/AdvReac Type Severity Reaction Status Date / Time cefaclor [From [facility]] Allergy Severe redness/swelling Verified 09/16/19 11:36 face Home Medications: Home Medications Losartan TAB* [Cozaar TAB*] 50 mg PO BID 01/22/13 [History Confirmed 09/16/19] Aspirin [Aspirin EC] 81 mg PO QPM 08/19/14 [History Confirmed 09/16/19] Metoprolol Tartrate 25 mg PO BID 08/19/14 [History Confirmed 09/16/19] Cyanocobalamin (Vitamin B-12) [Vitamin B-12] 1,000 mcg PO BEDTIME 05/09/16 [ History Confirmed 09/16/19] Albuterol HFA INHALER* [Ventolin HFA Inhaler*] 2 puff INH Q4H PRN 15 Days #1 mdi 04/29/18 [Rx Confirmed 09/16/19] Phentermine HCl 15 mg PO DAILY 04/29/18 [History Confirmed 09/16/19] Acetaminophen TAB* [Tylenol TAB*] 650 mg PO Q4H PRN 08/23/19 [History Confirmed 09/16/19] Cholecalciferol TAB* [Vitamin D TAB*] 50,000 unit PO WEEKLY 08/23/19 [History Confirmed 09/16/19] Naproxen Sodium [Aleve] 220 mg PO BID PRN 08/23/19 [History Confirmed 09/16/19] predniSONE 20 mg TAB [Deltasone 20 MG TAB*] 40 mg PO DAILY 08/23/19 [History Confirmed 09/16/19] PMH/Surg Hx/FS Hx/Imm Hx Cardiovascular History: Hypertension GI/ History: Gastroesophageal Reflux, Gastrointestional Bleed - remote hx, Other Psychological History: Other - hx of myelitis approximately 1999, with persistent neuropathy. - Surgical History Surgical History: Yes Surgery Procedure, Year, and Place: HERNIA REPAIR, VENOUS CLOSURE PARVIN LEGS. venous puncture right and left leg 2017. cervical fusion--01/2017 - Family History Known Family History: Positive: Hypertension, Respiratory Disease - Social History Occupation: Retired Alcohol Use: Rare Substance Use Type: Excessive Caffeine Smoking Status (MU): Former Smoker Have You Smoked in the Last Year: No When Did the Patient Quit Smoking/Using Tobacco: 1990 Review of Systems All Other Systems Reviewed And Are Negative: Yes Constitutional: Positive: Negative Skin: Positive: Bruising - bruises easily, Other - treated in August for hand cellulitis. Eyes: Positive: Negative ENT: Positive: Negative Respiratory: Negative: Shortness Of Breath, Cough Cardiovascular: Positive: Negative Gastrointestinal: Positive: Negative Genitourinary: Positive: Negative Motor: Positive: Decreased ROM Neurovascular: Positive: Negative Musculoskeletal: Positive: Arthralgia Neurological/Mental Status: Positive: Paresthesia, Numbness Psychological: Positive: Negative Is Patient Immunocompromised?: No Physical Exam Triage Information Reviewed: Yes Appearance: Pain Distress - mild, Other: - Alert, looks stated age, speaks easily Vital Signs: Initial Vital Signs Temp 97 F 09/16/19 11:30 Pulse 75 09/16/19 11:30 Resp 18 09/16/19 11:30 BP 160/78 09/16/19 11:30 Pulse Ox 100 09/16/19 11:30 ENT Exam: Normal Dental Exam: Normal Neck: Positive: Nontender, No Lymphadenopathy Respiratory Exam: Normal Cardiovascular Exam: Normal - Blood pressure elevated. Musculoskeletal Exam: Other - No joint line tenderness. Stiff antalgic gait with use of cane, flexed forward at lumbar spine. Musculoskeletal: Positive: ROM Limited @ - right shoulder with active abduction limited to 60 degrees, passive range without pain. Left wrist with diffuse swelling and mild warmth with mild swelling over the hand. TTP distal ulna and ulnar border of the wrist Psychological Exam: Normal Skin Exam: Other - ecchymosis dorsum of left hand. Hand/Wrist Course/Dx - Course Course Of Treatment: Splint right shoulder, immobilize left wrist in cock up splint. Discussed pain control, advising acetaminophen for control of pain. - Differential Dx/Diagnosis Differential Diagnosis/HQI/PQRI: Fracture - tendon tear left wrist., Tendonitis , Other - rotator cuff tear; Provider Diagnosis: Fracture of styloid process of left ulna, Injury of tendon of right rotator cuff Discharge ED - Sign-Out/Discharge Documenting (check all that apply): Patient Departure All imaging exams completed and their final reports reviewed: Yes - Discharge Plan Condition: Stable Disposition: HOME Patient Education Materials: Rotator Cuff Injury (ED), Wrist Fracture in Adults (ED) Referrals: Benji Medina MD [Primary Care Provider] - Additional Instructions: Continue home blood pressure monitoring due to current elevation. As we reviewed , you are doing regular checks and will follow up with Dr. Medina if you have a persistent elevation. The injury to your right shoulder is suggestive of a tendon tear, and will need to be reassessed by orthopedics. You have a referral to Dr. Car. Use the sling for comfort. You appear to have a non-displaced fracture of the left ulnar styloid. Keep the left wrist splint in place at all times. Ice the left wrist to relieve pain and swelling. Your best choice for pain medication is use of acetaminophen 1000 mg three times per day. - Billing Disposition and Condition Condition: STABLE Disposition: Home
== END 2019-09-16 13:07 | disposition home or self-care (01) ==
LOC: UCCORT 10:55
DX: S46.001A Unspecified injury of muscle(s) and tendon(s) of the rotator cuff of right shoulder, initial encounter (principal); S69.92XA Unspecified injury of left wrist, hand and finger(s), initial encounter; X50.1XXA Overexertion from prolonged static or awkward postures, initial encounter; Y93.89 Activity, other specified; Y92.9 Unspecified place or not applicable; I10 Essential (primary) hypertension; Z79.899 Other long term (current) drug therapy; Z79.82 Long term (current) use of aspirin; Z88.1 Allergy status to other antibiotic agents; Z87.891 Personal history of nicotine dependence
CPT/HCPCS: 99213; G0463

== ENCOUNTER 2019-09-23 11:31 | Emergency (ER) | payer MEDICARE, BC ==
--- OUTSIDE RECORDS SUMMARY | 2019-09-23 11:36 | XMS REPORT | Continuity of Care Document ---
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 Medicine Problems Description No Information Available Social History Type Date Description Comments Sex Unknown Allergies, Adverse Reactions, Alerts Active Allergies Reaction Severity Comments Date Cefaclor Difficulty breathing, Difficulty 09/19/2019 swallowing, Facial swelling, Hives Inactive Allergies NKDA 09/19/2019 Medications Active Medications SIG Qnty Indications Ordering Date Provider Hydrochlorothiazide 1 tab by mouth 90tabs Benji Medina, 25mg Tablets every day Lansoprazole Benji Medina, 15mg Capsules DR COHEN Losartan Potassium Benji Medina, 50mg Tablets Metoprolol Tartrate Benji Medina, 25mg Tablets Phentermine HCL Benji Medina, 15mg Capsules Prednisone Take Four Unknown 10mg Tablets Tablets By Mouth Every Day Aspirin 81 Low Dose 1 by mouth Unknown 81mg Chewtabs every day Glucosamine Chondroitin Unknown 1500 Complex 1500Com Capsules Immunizations Description No Information Available Vital Signs Date Vital Result Comment 09/19/2019 10:24am Height 72 inches 6'0" Weight 265.00 lb Heart Rate 78 /min BP Systolic 132 mmHg BP Diastolic 70 mmHg Respiratory Rate 16 /min Pain Level 5 BMI (Body Mass Index) 35.9 kg/m2 Results Description No Information Available Procedures Date Code Description Status 09/19/2019 52143 Rad Exam; Wrist, Comp, Min 3 Views Completed Medical Devices Description No Information Available Encounters Type Date Location Provider Dx Diagnosis Office Visit 09/19/2019 [facility] Daron Car, M75.121 Complete 10:15a at [place] rot[place]-cuff tear/ruptr of r shoulder, not trauma S63.502A Unspecified sprain of left wrist, initial encounter M25.532 Pain in left wrist Assessments Date Code Description Provider 09/19/2019 M75.121 Complete rotator cuff tear or rupture of right Daron Car MD shoulder, not specified as traumatic 09/19/2019 S63.502A Unspecified sprain of left wrist, initial Daron Car MD encounter 09/19/2019 M25.532 Pain in left wrist Daron Car MD Plan of Treatment 09/19/2019 - Daron Car, MDM75.121 Complete rotator cuff tear or rupture of right shoulder, not specified as traumaticNew Xrays:MRI Shoulder Right W/O, Scheduled: 09/22/19MRI Wrist Left W/O, Scheduled: 09/22/19Follow up:Follow up: after testing is [id number] Unspecified sprain of left wrist, initial encounterNew Xrays:MRI Wrist Left W/O, Scheduled: 09/22/19M25.532 Pain in left wrist Functional Status Description No Information Available Mental Status Description No Information Available Referrals Description No Information Available
--- OUTSIDE RECORDS SUMMARY | 2019-09-23 11:36 | XMS REPORT | Continuity of Care Document ---
:1945 External Reference #:[id number] Author Name Daron Car MD (transmitted by agent of provider Spring Craft) Address [address] [place] [id number] Care Team Providers Name Role Phone Benji Medina MD - Emergency Care Team Information Smt Operator [phone] Medicine Problems Description No Information Available Social [...] 15mg Capsules DR COHEN Losartan Potassium Benji Mednia, 50mg Tablets Metoprolol Tartrate Benji Medina, 25mg [...] kg/m2 Results Description No Information Available Procedures Description No Information Available Medical Devices Description No Information Available Encounters Type Date Location Provider Dx Diagnosis Office Visit 09/19/2019 [facility] Daron Car, M75.121 Complete 10:15a at [place] [facility]-cuff tear/ruptr of r shoulder, not trauma S63.502A Unspecified sprain of left wrist, initial encounter Assessments Date Code Description Provider 09/19/2019 M75.121 Complete rotator cuff tear or rupture of right Daron Car MD shoulder, not specified as traumatic 09/19/2019 S63.502A Unspecified sprain of left wrist, initial Daron Car MD encounter Plan of Treatment 09/19/2019 - Daron Car, MDM75.121 Complete rotator cuff tear or rupture of right shoulder, not specified as traumaticFollow up:Follow up: after testing is [id number] Unspecified sprain of left wrist, initial encounter Functional Status Description No Information Available Mental Status Description No Information Available Referrals Description No Information Available
[2019-09-23 12:05] VITALS: BP 140/72
--- NOTE | 2019-09-23 12:50 | UC ---
Hand/Wrist HPI - HPI Summary HPI Summary: 74yo male with left wrist pain x about 10 days States that a mos ago he was treated for left wrist cellulitis States that things seemed to worsen after hyperextending wrist Had MRI yesterday MRI concerning for possible septic joint He as had general malaise x 3 days no fever decreased ROM and increased pain today He is left handed - History Of Current Complaint Chief Complaint: UCUpperExtremity Stated Complaint: LT HAND ISSUES Time Seen by Provider: 09/23/19 11:49 Hx Obtained From: Patient Onset/Duration: Gradual Onset, Lasting Days Severity Initially: Mild Severity Currently: Moderate Pain Intensity: 3 - at rest Pain Scale Used: 0-10 Numeric Character Of Pain: Aching Aggravating Factor(s): Movement Alleviating Factor(s): Rest Associated Signs And Symptoms: Positive: Swelling, Redness Related History: Dominant Hand Left Hands: 1 - red/swollen/warm to touch. unable to flex or extend wrist. unable to extend fingers - Allergies/Home Medications Allergies/Adverse Reactions: Allergies Allergy/AdvReac Type Severity Reaction Status Date / Time cefaclor [From [facility]] Allergy Severe redness/swelling Verified 09/23/19 11:56 face Home Medications: Home Medications Losartan TAB* [Cozaar TAB*] 50 mg PO BID 01/22/13 [History Confirmed 09/23/19] Aspirin [Aspirin EC] 81 mg PO QPM 08/19/14 [History Confirmed 09/23/19] Cyanocobalamin (Vitamin B-12) [Vitamin B-12] 1,000 mcg PO BEDTIME 05/09/16 [ History Confirmed 09/23/19] Albuterol HFA INHALER* [Ventolin HFA Inhaler*] 2 puff INH Q4H PRN 15 Days #1 mdi 04/29/18 [Rx Confirmed 09/23/19] Phentermine HCl 15 mg PO DAILY 04/29/18 [History Confirmed 09/23/19] Acetaminophen TAB* [Tylenol TAB*] 650 mg PO Q4H PRN 08/23/19 [History Confirmed 09/23/19] Cholecalciferol TAB* [Vitamin D TAB*] 50,000 unit PO WEEKLY 08/23/19 [History Confirmed 09/23/19] Naproxen Sodium [Aleve] 220 mg PO BID PRN 08/23/19 [History Confirmed 09/23/19] predniSONE 20 mg TAB [Deltasone 20 MG TAB*] 40 mg PO DAILY 08/23/19 [History Confirmed 09/23/19] Metoprolol Tartrate TAB* [Lopressor TAB*] 25 mg PO BID 09/23/19 [History Confirmed 09/23/19] PMH/Surg Hx/FS Hx/Imm Hx Cardiovascular History: Hypertension Respiratory History: Bronchitis - Surgical History Surgical History: Yes Surgery Procedure, Year, and Place: HERNIA REPAIR, VENOUS CLOSURE PARVIN LEGS. venous puncture right and left leg 2017. cervical fusion--01/2017-NO METAL - Family History Known Family History: Positive: Hypertension, Respiratory Disease - Social History Alcohol Use: Rare Substance Use Type: Excessive Caffeine Smoking Status (MU): Former Smoker Have You Smoked in the Last Year: No When Did the Patient Quit Smoking/Using Tobacco: 1990 Review of Systems All Other Systems Reviewed And Are Negative: Yes Constitutional: Positive: Fatigue Skin: Positive: Negative Eyes: Positive: Negative ENT: Positive: Negative Respiratory: Positive: Negative Cardiovascular: Positive: Negative Gastrointestinal: Positive: Negative Motor: Positive: Negative Neurovascular: Positive: Negative Musculoskeletal: Positive: Arthralgia - left wrist Neurological/Mental Status: Positive: Negative Psychological: Positive: Negative Physical Exam Triage Information Reviewed: Yes Appearance: Well-Appearing, No Pain Distress, Well-Nourished Vital Signs: Initial Vital Signs Temp 98.3 F 09/23/19 11:52 Pulse 86 09/23/19 11:52 Resp 18 09/23/19 11:52 BP 140/72 09/23/19 11:52 Pulse Ox 98 09/23/19 11:52 Vital Signs Reviewed: Yes Eyes: Positive: Conjunctiva Clear ENT: Positive: Hearing grossly normal. Negative: Nasal congestion, Nasal drainage, Muffled voice, Hoarse voice Respiratory: Positive: Lungs clear, Normal breath sounds, No respiratory distress, No accessory muscle use Cardiovascular: Positive: RRR, No Murmur Musculoskeletal: Positive: Other: - see image Psychological Exam: Normal Skin Exam: Other - see image Hand/Wrist Course/Dx - Differential Dx/Diagnosis Provider Diagnosis: Swelling of joint, wrist, left Discharge ED - Sign-Out/Discharge Documenting (check all that apply): Patient Departure All imaging exams completed and their final reports reviewed: No Studies - Discharge Plan Condition: Guarded Disposition: AGAINST MEDICAL ADVICE Patient Education Materials: Swollen Joint (ED) Referrals: Benji Medina MD [Primary Care Provider] - Additional Instructions: As discussed your exam and MRI results are very concerning for the possibility of a joint infection. Are we sure it is due to an infection? No. However, if it is, this is something that needs to be addressed LALA Complications include: loss of a functioning joint loss of limb spread of infection to other areas sepsis If you change you mind go directly to the ER Take copy of MRI report - Billing Disposition and Condition Condition: GUARDED Disposition: Against Medical Advice
== END 2019-09-23 13:04 | disposition left against medical advice (07) ==
LOC: UCCORT 11:31
DX: M25.432 Effusion, left wrist (principal); M25.532 Pain in left wrist; I10 Essential (primary) hypertension; Z79.82 Long term (current) use of aspirin; Z79.899 Other long term (current) drug therapy; Z88.1 Allergy status to other antibiotic agents; Z87.891 Personal history of nicotine dependence
CPT/HCPCS: 87040; 99212; G0463